=== PATIENT | male | born 1980 | race Caucasian/White ===

== ENCOUNTER 2021-01-23 10:57 | Emergency (ER) | payer BC ==
[~2021-01-23] VITALS: Ht 165.1 cm; Wt 122.5 kg
[2021-01-23 10:59] VITALS: BP 143/93
--- NOTE | 2021-01-23 11:02 | NUR ---
MD Maya at the bedside evaluating patient.
--- NOTE | 2021-01-23 11:04 | NUR ---
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 PT WAS EATING WHEN 10/10 CRAMPING PAIN BEGAN. DENIES TRAUMA OR INJURY TO AREA. DENIES ANY OTHER SYMPTOMS. IN ED, VSS. NO ACTIVE VOMITING NOTED. ABDOMEN SOFT, TENDER WITH ACTIVE BS. PAIN SCALE 5/10 AT THIS TIME. CHANGED TO HOSPITAL GOWN. ERMD MADE AWARE OF PT STATUS. PMH: APPENDECTOMY MEDS: NONE NKA
[2021-01-23] MEDS ORDERED: FAMOTIDINE 20 MG/2 ML VIAL IVP ONE (11:10)
[2021-01-23] MEDS ORDERED: NACL 0.9% 1,000 ML IV ONE ×2 (11:10→13:30)
[2021-01-23] MEDS ORDERED: ONDANSETRON 4 MG/2 ML VIAL IVP ONE (11:10)
[2021-01-23] MEDS ORDERED: MORPHINE SULFATE 2 MG/ML SYR IVP ONE (11:10)
--- NOTE | 2021-01-23 11:33 | NUR ---
Ultrasound at bedside.
--- NOTE | 2021-01-23 11:42 | NUR ---
XRAY TECHS AT BEDSIDE AT THIS TIME. PATIENT STABLE, NO SIGNS OF ACUTE DISTRESS NOTED.
[2021-01-23 11:47] LABS: BASOPHILS % (AUTO) 0.7 % (0.0-2.0); EOSINOPHILS # (AUTO) 0.1 K/uL (0-0.4); EOSINOPHILS % (AUTO) 1.6 % (0.0-4.0); HEMATOCRIT 41.8 % (36-52); HEMOGLOBIN 14.6 g/dL (12.0-18.0); LYMPHOCYTES # (AUTO) 2.2 K/uL (2.0-11.5); MEAN CORPUSCULAR HEMOGLOBIN 32 pg (27-31); MEAN CORPUSCULAR HGB CONC 35 g/dL (33-37); MEAN CORPUSCULAR VOLUME 90.7 fL (80-94); MONOCYTES # (AUTO) 0.5 K/uL (0.8-1.0); MONOCYTES % (AUTO) 7.6 % (1.7-9.3); NEUTROPHILS # (AUTO) 3.5 K/uL (1.8-7.7); NEUTROPHILS % (AUTO) 55.1 % (42.2-75.2); PLATELET COUNT (AUTO) 205 K/uL (140-450); RED BLOOD CELL COUNT(AUTO) 4.61 MIL/uL (4.20-6.10); WHITE BLOOD COUNT (AUTO) 6.4 K/uL (4.8-10.8)
[2021-01-23 11:58] LABS: ALBUMIN 4.3 g/dL (3.4-5.0); ANION GAP 11.5 (8-16); CARBON DIOXIDE 28.1 mmol/L (21-32); POTASSIUM 3.6 mmol/L (3.5-5.1); TOTAL BILIRUBIN 1.1 mg/dL (0.0-1.0)
--- NOTE | 2021-01-23 12:01 | NUR ---
LOG CUTTER AT BEDSIDE. PATIENT STABLE, NO SIGNS OF ACUTE DISTRESS NOTED.
[2021-01-23] MEDS ORDERED: DICYCLOMINE HCL LIQUID 20 MG, ALUMINUM HYD/MAG/SIMETHICONE 30 ML, LIDOCAINE VISCOUS 2% ... PO ONE ×3 (12:15)
[2021-01-23] MEDS ORDERED: ALUMINUM HYD/MAG/SIMETHICONE 30 ML UDC ONE ×2 (12:22)
[2021-01-23] MEDS ORDERED: DICYCLOMINE HCL LIQUID 10 MG/5 ML UDC ONE (12:22)
[2021-01-23] MEDS ORDERED: MAG355OR2 PO (13:08)
[2021-01-23] MEDS ORDERED: ONDA-24 PO (13:08)
[2021-01-23] MEDS ORDERED: FAMO-90 PO (13:08)
[2021-01-23] MEDS ORDERED: diphenhydrAMINE 50 MG/ML VIAL IVP ONE (13:20)
[2021-01-23] MEDS ORDERED: METOCLOPRAMIDE 10 MG/2 ML INJ VIAL IVP ONE (13:20)
--- NOTE | 2021-01-23 13:35 | NUR ---
Patient taken to CT scan via gurney by [employer].
[2021-01-23 14:45] VITALS: BP 143/93
--- NOTE | 2021-01-23 14:46 | NUR ---
Patient discharged with v/s stable. Written and verbal after care instructions given and explained. Patient alert, oriented and verbalized understanding of instructions. Wheel Chair Assisted with to car. All questions addressed prior to discharge. ID band removed. Patient advised to follow up with PMD. Rx of MAALOX, ZOFRAN, FAMOTIDINE given. Patient educated on indication of medication including possible reaction and side effects. Opportunity to ask questions provided and answered.
--- NOTE | 2021-01-28 19:51 | NUR ---
LATE ENTRY- 0.9% NS BOLUS DISCONTINUED AT 1245
== END 2021-01-23 14:46 | disposition home or self-care (01) ==
LOC: MED 10:57
DX: K29.70 Gastritis, unspecified, without bleeding (principal); K76.0 Fatty (change of) liver, not elsewhere classified; Z20.822 Contact with and (suspected) exposure to COVID-19
CPT/HCPCS: 36415; 71045; 74176; 76705; 80053; 83605; 83690; 84484; 85025; 87426; 93005; 96361; 96374; 96375; 99285; J1200; J2270; J2405; J2765; J3490; J7030